=== PATIENT | female | born 1990 | race Caucasian/White ===

== ENCOUNTER 2017-10-31 06:58 | Day surgery (SDC) | payer OTHER ==
[~2017-10-31 06:58] MED LIST: FIORICET 50-321 EACH PO; KETO10TA2 PO; ORPH100T PO; ZEBUTAL 50-3251 EACH PO
== END 2017-10-31 10:20 | disposition home or self-care (01) ==
LOC: AMB-ENDOS 06:58
DX: K29.60 Other gastritis without bleeding (principal); K44.9 Diaphragmatic hernia without obstruction or gangrene; K29.70 Gastritis, unspecified, without bleeding

== ENCOUNTER → 2019-10-11 | Emergency (ER) | payer OTHER ==
[~2019-10-11] VITALS: Ht 170.2 cm; Wt 97.5 kg
[~2019-10-11] MED LIST changes: +PEPCID40 MG PO; +PHENAGIL CH TA1 EACH PO; +ZOFRAN4 MG PO
== END | disposition home or self-care (01) ==
LOC: ER
DX: K52.9 Noninfective gastroenteritis and colitis, unspecified (principal)

== ENCOUNTER 2021-08-31 12:40 | Emergency (ER) | payer OTHER ==
[~2021-08-31] VITALS: Ht 172.7 cm; Wt 106.6 kg
[2021-08-31] MEDS ORDERED: DICLOFENAC POTA50 MG PO (14:24)
[2021-08-31] MEDS ORDERED: ORPHENADRINE C100 MG PO (14:24)
== END 2021-08-31 14:32 ==
LOC: ER 12:40
DX: S83.8X2A Sprain of other specified parts of left knee, initial encounter (principal); W19.XXXA Unspecified fall, initial encounter; Y93.89 Activity, other specified; Y92.89 Other specified places as the place of occurrence of the external cause; Y99.8 Other external cause status

== ENCOUNTER 2023-02-04 09:37 | Emergency (ER) | payer OTHER ==
[~2023-02-04] VITALS: Ht 172.7 cm; Wt 113.4 kg
[~2023-02-04 09:37] MED LIST changes: +ACID REDUCER20 M1; +DICLOFENAC POTA50 MG PO; +ORPHENADRINE C100 MG PO; +TUSSI PRES-B L480 ML PO; +ZITHROMAX500 MG PO
[2023-02-04] MEDS ORDERED: PEPCID AC20 MG PO (13:51)
[2023-02-04] MEDS ORDERED: ONDANSETRON ODT8 MG PO (13:51)
== END 2023-02-04 14:04 | disposition home or self-care (01) ==
LOC: ER 09:37
DX: K52.9 Noninfective gastroenteritis and colitis, unspecified (principal); B34.9 Viral infection, unspecified; Z20.822 Contact with and (suspected) exposure to COVID-19

== ENCOUNTER 2023-05-20 08:43 | Emergency (ER) | payer OTHER ==
[~2023-05-20] VITALS: Ht 172.7 cm; Wt 111.1 kg
[~2023-05-20 08:43] MED LIST changes: +ONDANSETRON ODT8 MG PO; +PEPCID AC20 MG PO
== END 2023-05-20 15:27 | disposition home or self-care (01) ==
LOC: ER 08:43
DX: R10.84 Generalized abdominal pain (principal)

== ENCOUNTER 2023-06-04 12:37 | Emergency (ER) | payer OTHER ==
[~2023-06-04] VITALS: Ht 172.7 cm; Wt 113.4 kg
== END 2023-06-04 17:53 | disposition home or self-care (01) ==
LOC: ER 12:37
PROVIDERS: General Practice
DX: N83.209 Unspecified ovarian cyst, unspecified side (principal); R10.2 Pelvic and perineal pain; R07.89 Other chest pain

== ENCOUNTER → 2024-10-23 | Emergency (ER) | payer OTHER ==
[~2024-10-23] VITALS: Ht 172.7 cm; Wt 99.3 kg
[~2024-10-23] MED LIST changes: +BUTALB/ACETAMINOPHEN/CAFFEINE 1 TAB TABLET PO ONE; +BUTALBIT-ACETA1 EACH PO; +FAMOTIDINE/PF 20 MG/2 ML VIAL ONE; +FAMOtidine 10 MG/ML (4ML VIAL) IV PUSH ONE; +ZOFRAN8 MG PO
[2024-10-23 09:52] LABS: HEMOGLOBIN 9.6 g/dL (12.0-15.00); MEAN CORPUSCULAR HEMOGLOBIN 20.7 pg (27.00-32.0); PLATELET COUNT 348 K/uL (150-450); RED BLOOD COUNT 4.64 M/uL (4.00-6.00); RED CELL DISTRIBUTION WIDTH 17.8 % (11.5-14.5)
[2024-10-23 09:53] LABS: MEAN CELL VOLUME 66.8 fL (80.00-100.00)
== END | disposition home or self-care (01) ==
LOC: ER 08:50
PROVIDERS: General Practice
DX: G43.001 Migraine without aura, not intractable, with status migrainosus (principal); Z20.822 Contact with and (suspected) exposure to COVID-19; Z91.013 Allergy to seafood; Z91.018 Allergy to other foods

== ENCOUNTER 2025-03-01 10:41 | Emergency (ER) | payer OTHER ==
[~2025-03-01] VITALS: Ht 172.7 cm; Wt 99.8 kg
[~2025-03-01 10:41] MED LIST changes: -BUTALB/ACETAMINOPHEN/CAFFEINE 1 TAB TABLET PO ONE; -FAMOTIDINE/PF 20 MG/2 ML VIAL ONE; -FAMOtidine 10 MG/ML (4ML VIAL) IV PUSH ONE
[2025-03-01] MEDS ORDERED: OMEPRAZOLE-BIC1 EAC1 (11:20)
[2025-03-01] MEDS ORDERED: FAMOTIDINE/PF 20 MG IV ONE (12:15)
[2025-03-01] MEDS ORDERED: ACETAMINOPHEN 500 MG GEL..CAP PO ONE ×2 (12:30→13:03)
[2025-03-01] MEDS ORDERED: FAMOTIDINE/PF 20 MG/2 ML VIAL ONE (13:04)
[2025-03-01] MEDS ORDERED: FAMOTIDINE/PF 20 MG/2 ML VIAL IV PUSH STA (14:02)
[2025-03-01 14:06] LABS: BASO % 0.4 % (0.1-1.2); EOS # 0.04 (0.04-0.54); EOS % 0.8 % (0.7-7.0); HEMATOCRIT 32.3 % (34.1-44.9); HEMOGLOBIN 9.6 g/dL (11.2-15.7); LYMPH # 0.79 (1.18-3.74); LYMPH % 16.4 % (19.3-53.1); MEAN CORPUSCULAR HEMOGLOBIN 21.1 pg (25.6-32.2); MONO # 0.31 (0.24-0.82); MONO % 6.4 % (4.7-12.5); NEUT # 3.65 (1.56-6.13); NEUT % 75.8 % (34.0-71.1); PLATELET COUNT 313 K/uL (163-369); RED BLOOD COUNT 4.55 M/uL (3.93-5.22); RED CELL DISTRIBUTION WIDTH 16.8 % (11.6-14.4)
[2025-03-01 14:20] LABS: CALCIUM 8.3 mg/dL (8.5-10.1); CREATININE SERUM 0.74 mg/dL (0.55-1.02); GFR 88.8; POTASSIUM 3.87 mEq/L (3.5-5.1)
[2025-03-01 15:10] LABS: PH,URINE 5.5 (5.0-8.0); URINE APPEARANCE Cloudy; URINE BILIRRUBIN Negative (NEGATIVE); URINE BLOOD Negative; URINE COLOR Yellow; URINE GLUCOSE Negative (NEGATIVE); URINE KETONE Negative (NEGATIVE); URINE LEUKOCYTE Trace; URINE NITRATE Negative; URINE PROTEIN Negative (NEGATIVE); URINE UROBILINOGEN 0.2 E.U./dl
[2025-03-01 15:14] LABS: URINE BACTERIA 3718.3 uL (0.0-1933); URINE EPITHELIAL CELLS 188.2 uL (0.0-38.8); URINE WBC 65.6 uL (0.0-23.2)
[2025-03-01 15:23] LABS: COVID-19 AG NEGATIVE (NEGATIVE)
[2025-03-01 15:25] LABS: INFLUENZA A AG NEGATIVE (NEGATIVE)
== END 2025-03-01 15:47 | disposition home or self-care (01) ==
LOC: ER 10:41
PROVIDERS: General Practice
DX: B34.9 Viral infection, unspecified (principal); K29.70 Gastritis, unspecified, without bleeding; Z20.822 Contact with and (suspected) exposure to COVID-19; Z91.013 Allergy to seafood; Z91.018 Allergy to other foods

== ENCOUNTER 2025-04-07 16:24 | Emergency (ER) | payer OTHER ==
[~2025-04-07] VITALS: Ht 172.7 cm; Wt 99.8 kg
[~2025-04-07 16:24] MED LIST changes: +OMEPRAZOLE-BIC1 EAC1
[2025-04-07] MEDS ORDERED: MOUNJARO10 MG/0.5 SQ (16:48)
[2025-04-07 18:06] LABS: BASO % 0.7 % (0.1-1.2); EOS # 0.08 (0.04-0.54); EOS % 1.4 % (0.7-7.0); LYMPH # 2.05 (1.18-3.74); LYMPH % 36.0 % (19.3-53.1); MEAN PLATELET VOLUME 10.20 fl (9.4-12.4); MONO # 0.32 (0.24-0.82); MONO % 5.6 % (4.7-12.5); NEUT # 3.20 (1.56-6.13); NEUT % 56.1 % (34.0-71.1); RED CELL DISTRIBUTION WIDTH 17.1 % (11.6-14.4)
[2025-04-07 18:28] LABS: ALT/SGPT 16.0 U/L (12-78); AST/SGOT 10.0 U/L (15-37); BILIRUBIN TOTAL 0.23 mg/dL (0.3-1.2); BUN CREA RATIO 9.0 (7.0-25.0); CREATININE SERUM 0.94 mg/dL (0.55-1.02); GFR 67.38; GLOBULINA 4.7 G/DL (2.4-3.5); GLUCOSE FASTING 93.0 mg/dL (65-100); OSMOLALITY SERUM 281.0 MOSM/KG (275-295)
[2025-04-07 18:53] LABS: URINE APPEARANCE Clear; URINE BILIRRUBIN Negative (NEGATIVE); URINE BLOOD Negative; URINE COLOR Yellow; URINE GLUCOSE Negative (NEGATIVE); URINE KETONE Trace (NEGATIVE); URINE LEUKOCYTE Small; URINE NITRATE Negative; URINE PROTEIN Negative (NEGATIVE); URINE UROBILINOGEN 0.2 E.U./dl
[2025-04-07 18:57] LABS: URINE BACTERIA 956.3 uL (0.0-1933); URINE EPITHELIAL CELLS 42.1 uL (0.0-38.8); URINE RBC 3.5 uL (0.0-20.8); URINE WBC 101.1 uL (0.0-23.2)
[2025-04-07 19:05] LABS: URINE CAST 0.00 uL (0.0-1.40)
== END 2025-04-07 20:01 | disposition home or self-care (01) ==
LOC: ER 16:41
PROVIDERS: General Practice
DX: R30.0 Dysuria (principal); Z91.013 Allergy to seafood; B37.31 Acute candidiasis of vulva and vagina